=== PATIENT | female | born 1990 | race Caucasian/White ===

== ENCOUNTER 2016-12-20 17:58 | Emergency (ER) | payer OTHER ==
[2016-12-20 18:15] VITALS: RESP 18
[2016-12-20] MEDS: IBUPROFEN 600 MG STARTER PACK 4 TAB BTL PO STA (18:23)
--- NOTE | 2016-12-20 18:56 | XR ---
EXAMINATION TYPE: XR chest 2V DATE OF EXAM: 12/20/2016 6:48 PM COMPARISON: NONE HISTORY: Cough and congestion with fever TECHNIQUE: Frontal and lateral views of the chest are obtained. FINDINGS: Pectus excavatum is incidentally noted. There is no focal air space opacity, pleural effusion, or pneumothorax seen. The cardiac silhouette size is within normal limits. The osseous structures are intact. IMPRESSION: No acute cardiopulmonary process.
--- NOTE | 2016-12-20 19:13 | ED ---
URI HPI - General Chief Complaint: Upper Respiratory Infection Stated Complaint: flu symptoms Time Seen by Provider: 12/20/16 18:09 Source: patient, RN notes reviewed Mode of arrival: ambulatory Limitations: no limitations - History of Present Illness Initial Comments: Patient is a 26 year old female with cough, congestion and fever for 3 days. She denies any nauesea or vomiting. She did not receive the flu vaccine, she states she took motrin earlier today. She has a history of sick contacts with similar symptoms. Patient denies chest pain, shortness of breath, nausea, vomiting, diearrhea, abdominal pain. - Related Data Home Medications Medication Instructions Recorded Confirmed Krt-Tzoi-Axnaa Acid 1 each PO DAILY 09/17/14 11/06/14 [-U Capsule] Previous Rx's Medication Instructions Recorded Acetaminophen-Codeine 300-30mg 1 - 2 each PO Q4HR PRN #40 tab 11/07/14 [Tylenol w/codeine #3] Ibuprofen [Motrin] 600 mg PO Q6HR PRN #40 tab 11/07/14 Benzonatate [Tessalon Perles] 100 mg PO TID PRN #20 capsule 12/20/16 Allergies Allergy/AdvReac Type Severity Reaction Status Date / Time No Known Allergies Allergy Verified 12/20/16 18:12 Review of Systems ROS Statement: Those systems with pertinent positive or pertinent negative responses have been documented in the HPI. ROS Other: All systems not noted in ROS Statement are negative. Past Medical History Past Medical History: GERD/Reflux Additional Past Medical History / Comment(s): Recent bladder infection. Demise 09/2013 History of Any Multi-Drug Resistant Organisms: None Reported Past Surgical History: Section Past Anesthesia/Blood Transfusion Reactions: Postoperative Nausea & Vomiting ( PONV) Past Psychological History: No Psychological Hx Reported Smoking Status: Former smoker Past Alcohol Use History: Occasional Past Drug Use History: None Reported - Past Family History Mother Family Medical History: No Reported History General Exam Limitations: no limitations General appearance: alert, in no apparent distress Head exam: Present: atraumatic, normocephalic, normal inspection Eye exam: Present: normal appearance, PERRL, EOMI. Absent: scleral icterus, conjunctival injection, periorbital swelling ENT exam: Present: normal exam, mucous membranes moist Neck exam: Present: normal inspection. Absent: tenderness, meningismus, lymphadenopathy Respiratory exam: Present: normal lung sounds bilaterally. Absent: respiratory distress, wheezes, rales, rhonchi, stridor Cardiovascular Exam: Present: regular rate, normal rhythm, normal heart sounds. Absent: systolic murmur, diastolic murmur, rubs, gallop, clicks GI/Abdominal exam: Present: soft, normal bowel sounds. Absent: distended, tenderness, guarding, rebound, rigid Extremities exam: Present: normal inspection, full ROM, normal capillary refill , other (patient reports diffuse body aches. ). Absent: tenderness, pedal edema , joint swelling, calf tenderness Back exam: Present: normal inspection Neurological exam: Present: alert, oriented X3, CN II-XII intact Psychiatric exam: Present: normal affect, normal mood Skin exam: Present: warm, dry, intact, normal color. Absent: rash Course Vital Signs 12/20/16 12/20/16 18:12 19:39 Temperature 100.5 F H 99.2 F Pulse Rate 96 97 Respiratory 18 18 Rate Blood Pressure 118/67 108/58 O2 Sat by Pulse 99 96 Oximetry Medical Decision Making - Medical Decision Making Patient is a 26 year old female with cough, congestion and fever for 3 days. She denies any nauesea or vomiting. She did not receive the flu vaccine, she states she took motrin earlier today. She has a history of sick contacts with similar symptoms. Patient did test postive for influenza A. Discussed hand washing and following up with PCP. CXR negative for acute process. Patient not a candidate for tamiflu due to duration of symptoms. Patient understands rotating motrin and tylenol. and will be given tessalon perles for cough. - Lab Data Lab Results 12/20/16 Range/Units 18:15 Influenza Type A RNA Not Detected (Not Detectd) Influenza Type B (PCR) Detected H (Not Detectd) - Radiology Data Radiology results: report reviewed CXR is negative for acute process. Disposition Clinical Impression: Influenza B Disposition: HOME SELF-CARE Condition: Good Instructions: Influenza (ED) Additional Instructions: Patient is to rest, increase fluids, alternate between Motrin and Tylenol every 3 hours. Return to the emergency department if any worsening signs or symptoms occur. Follow-up with primary care provider if symptoms continue to persist after 5 more days. Prescriptions: Benzonatate [Tessalon Perles] 100 mg PO TID PRN #20 capsule PRN Reason: Cough Referrals: Yajaira Lema MD [Primary Care Provider] - 1-2 days Time of Disposition: 19:12
[2016-12-20 19:41] VITALS: BP 108/58; PULSE 97; TEMP 99.2
== END 2016-12-20 19:42 | disposition home or self-care (01) ==
LOC: EC 17:58
DX: J10.1 Influenza due to other identified influenza virus with other respiratory manifestations (principal); Z87.891 Personal history of nicotine dependence; Z79.899 Other long term (current) drug therapy
CPT/HCPCS: 71020; 87502; 99283

== ENCOUNTER → 2020-02-13 | Outpatient (CLI) | payer OTHER | LOC: LABWHC1 07:58 | PROVIDERS: ATTEND Obstetrics & Gynecology | DX: Z03.818 Encounter for observation for suspected exposure to other biological agents ruled out (principal) | CPT/HCPCS: 87635 ==

== ENCOUNTER 2020-02-16 06:16 | Day surgery (SDC) | payer OTHER ==
[2020-02-13 08:45] VITALS: BMI 27.6
[~2020-02-16 06:16] MED LIST: DEXAMETHASONE SOD PHOSPHATE 10 MG/ML 1 ML VIAL IV ONE; HYDROmorphone 0.5 MG/0.5 ML SYRINGE IVP PRN; LACTATED RINGERS 1,000 ML IV SCH; LIDOCAINE 1% (10MG/ML) FOR IV START INTRADERMA PRN; ONDANSETRON 4 MG/2 ML VIAL IVP ONE; Pre Op ABX Message 1 EACH MISC MISCELLANE ONE
[2020-02-16] MEDS ORDERED: LACTATED RINGERS 1,000 ML IV ONE (06:41)
[2020-02-16] MEDS ORDERED: ONDANSETRON 4 MG/2 ML VIAL IVP ONE (06:41)
[2020-02-16] MEDS ORDERED: DEXAMETHASONE SOD PHOS (MDV) 100 MG/10 ML VIAL IVP ONE (06:41)
[2020-02-16] MEDS ORDERED: LIDOCAINE 1% INJ 10MG/ML (20 ML MDV) ONE (07:25)
[2020-02-16] MEDS ORDERED: KETOROLAC 30 MG/ML 1 ML VIAL ONE (07:25)
[2020-02-16] MEDS ORDERED: SUCCINYLCHOLINE CHLORIDE 100 MG/5 ML SYR IV ONE (07:25)
[2020-02-16] MEDS ORDERED: PROPOFOL 10 MG/ML 20 ML VIAL IV ONE (07:25)
[2020-02-16] MEDS ORDERED: fentaNYL (PF) 50 MCG/ML 2 ML AMP ONE (07:25)
[2020-02-16] MEDS ORDERED: MIDAZOLAM 2 MG/2 ML VIAL ONE (07:25)
--- NOTE | 2020-02-16 07:30 | P.HPOB ---
History of Present Illness H&P Date: 02/16/20 Chief Complaint: Dysfunctional uterine bleeding Roxanna is a 29-year-old female with heavy vaginal bleeding that is dysfunctional causing her significant distress. She is scheduled for D&C with hysteroscopy to rule out pathology. She relates that this symptoms has been going on since approximately August 2019 and she is blood so badly that she breathes bleeds through her clothing and it is severely limiting her lifestyle. She further notes that she is passing plum size clots. Risks/benefits/alternatives were reviewed with the patient in detail all questions were answered for her prior to proceeding to the operating room. Past Medical History Past Medical History: GERD/Reflux Additional Past Medical History / Comment(s): HEAVY MENSES FOR PAST NINE MONTHS. Demise 09/2013 History of Any Multi-Drug Resistant Organisms: None Reported Past Surgical History: Section, Tubal Ligation Additional Past Surgical History / Comment(s): C-SEC X 3 Past Anesthesia/Blood Transfusion Reactions: No Reported Reaction Smoking Status: Former smoker - Past Family History Mother Family Medical History: No Reported History Medications and Allergies Home Medications Medication Instructions Recorded Confirmed Type No Known Home Medications 02/13/20 02/13/20 History Allergies Allergy/AdvReac Type Severity Reaction Status Date / Time No Known Allergies Allergy Verified 02/13/20 08:39 Exam Osteopathic Statement: *. No significant issues noted on an osteopathic structural exam other than those noted in the History and Physical/Consult. Vital Signs Temp Pulse Resp BP Pulse Ox 02/16/20 06:40 97.8 F 90 18 130/71 99 Intake and Output 02/15/20 02/16/20 02/16/20 22:59 06:59 14:59 Intake Total 100 Balance 100 Intake: IV 100 Other: Weight 84.5 kg - OBG Physical Exam Breast: both: normal (no masses) Abdomen: bowel sounds normal, no diffuse tenderness, no bruit present, no guarding noted, no hepatomegaly, no splenomegaly, no mass Vulva: both: normal Vagina: normal moisture, no discharge Cervix: no lesion, no discharge Uterus: normal size, normal contour Adnexa: both: normal Anus/Rectum: normal perianal skin, no rectal mass, no hemorrhoids, heme negative
--- NOTE | 2020-02-16 07:52 | P.OP ---
Date of Procedure: 02/16/20 Preoperative Diagnosis: Dysfunctional uterine bleeding Postoperative Diagnosis: Same Procedure(s) Performed: D&C with hysteroscopy Anesthesia: NISA Surgeon: Roman Love Estimated Blood Loss (ml): 4 IV fluids (ml): 500 Pathology: other (Uterine curettings) Condition: stable Disposition: same day Operative Findings: Possible polyps Description of Procedure: Patient was taken to the operating suite where a general anesthetic was found be adequate. She was prepped and draped in the normal sterile fashion and placed in dorsal lithotomy position. Initially a speculum was inserted into the vagina and the anterior lip cervix identified and grasped with single-tooth tenaculum. Cervix was then dilated and uterus was sounded to 9 cm. It is noted that uterus is retroverted. No other masses are noted. Camera was inserted and suspected polyps were noted there were at least 3 separate small polyps that were noted. Once this was completed, camera was removed. Sharp curettings of the endometrium were then obtained and sent to pathology for evaluation on Telfa paper. Once completed all incidents removed. Sponge, lap, needle counts were all correct 2. Patient was then taken to the recovery room in stable and satisfactory condition. Plan - Discharge Summary Discharge Rx Participant: No New Discharge Prescriptions: New Ibuprofen [Motrin] 600 mg PO Q6HR PRN #30 tab PRN Reason: Pain Discharge Medication List Ibuprofen [Motrin] 600 mg PO Q6HR PRN #30 tab 02/16/20 [Rx] Follow up Appointment(s)/Referral(s): Roman Love DO [Doctor of Osteopathic Medicine] - 2 Weeks Activity/Diet/Wound Care/Special Instructions: No heavy lifting, limit stairs and driving, and pelvic rest. If any high temperatures, heavy bleeding, or severe pain call my office Discharge Disposition: HOME SELF-CARE
[2020-02-16 08:10] VITALS: TEMP 98
[2020-02-16 08:57] VITALS: BP 130/80; PULSE 68; RESP 18
== END 2020-02-16 09:12 | disposition home or self-care (01) ==
LOC: OR 06:16
PROVIDERS: ATTEND Obstetrics & Gynecology
DX: N93.8 Other specified abnormal uterine and vaginal bleeding (principal); N92.0 Excessive and frequent menstruation with regular cycle; Z87.891 Personal history of nicotine dependence; K21.9 Gastro-esophageal reflux disease without esophagitis; Z98.51 Tubal ligation status; Z98.890 Other specified postprocedural states
CPT/HCPCS: 58558; 81025; J2250; J2405; J2001; J3010; J1885; J1100; J0330; J2704; 88305

== ENCOUNTER → 2022-04-13 | Outpatient (CLI) | payer OTHER ==
--- NOTE | 2022-04-13 10:56 | XR ---
EXAMINATION TYPE: XR foot complete LT DATE OF EXAM: 04/13/2022 COMPARISON: None HISTORY: Left foot pain x1 week TECHNIQUE: 3 view left foot FINDINGS: No acute fractures or dislocations are evident. Alignment appears normal. Joint spaces are preserved. Soft tissue has mild prominence over the dorsum of the foot. Follow up exams can be perfor med 7-10 days from acute trauma for continued pain. IMPRESSION: 1. No acute osseous abnormality left foot
== END | disposition home or self-care (01) ==
LOC: RADXRMAIN 10:27
PROVIDERS: ATTEND Family Medicine
DX: M79.672 Pain in left foot (principal)